=== PATIENT | female | born 1950 | race Caucasian/White ===

== ENCOUNTER → 2016-10-09 | Outpatient (CLI) | payer BC ==
[~2016-10-09] MED LIST: ALLERGY INJECTIONS SC; CALC500C70 PO; IRBE75TA2 PO; MISCCAP80 PO; MONT1TAB3 PO; MULT-506 PO; NAPR1TAB9 PO; OXGN; PANT20TA2 PO; PLMIN90 INH; PSYL55.43 PO; UMEC1AER INH; VNTHFA/IN INH
--- NOTE | 2016-10-09 16:19 | MAMMOGRAPHY REPORT ---
UNILATERAL RIGHT DIGITAL DIAGNOSTIC MAMMOGRAM TOMOSYNTHESIS WITH CAD AND TARGETED RIGHT ULTRASOUND: 10/09/2016 CLINICAL HISTORY: 66-year-old woman presents for follow-up of probably benign cyst clusters within t he right breast. She has a history of prior benign left breast surgery. TECHNIQUE: Right breast CC and MLO 2-D digital and tomosynthesis images, spot magnification right CC and ML views were obtained. Current study was also evaluated with a Computer Aided Detection (CAD) system. COMPARISON: Comparison is made to exams dated: 04/10/2016 mammogram, 04/10/2016 ultrasound, 016 mammogram - [facility], 11/19/2013 mammogram, 08/20/2012 mammogram, and 1 mammogram - [facility]. BREAST COMPOSITION: There are scattered areas of fibroglandular density in the right breast. FINDINGS: There is a new small cluster of amorphous microcalcifications in the 6:00 anterior right breast, for which additional spot magnification views were obtained. On the spot magnification view s, none of the calcifications demonstrate definitive layering on the spot magnification ML view to c onfirm benign milk of calcium. They measure 5 mm in diameter. On the corresponding tomosynthesis i mages from the full-field views, they appear to be associated with a lobulated, partially circumscri bed mass, suggesting they could represent calcium within a cyst. Further evaluation with ultrasound was performed. There is another partially circumscribed lobulated mass in the lateral anterior rig ht breast on the CC view. No focal area of architectural distortion or other microcalcifications ar e identified. Real-time high-resolution ultrasound was performed in the 6:00 right breast, and also in the 12:00 a nd 9:00 axes to reevaluate the probable cyst clusters identified on prior ultrasound. In the 6:00 r ight breast, 1 cm from the nipple, there is a small microcyst cluster measuring approximately 6.6 x 3.7 x 8.1 mm. This likely correlates with the small cluster of microcalcifications and associated l obulated mass seen mammographically. Definitive characterization with tissue sampling is recommende d. In the 11:00 retroareolar right breast, there is a 10.7 x 6.7 x 14.1 mm cyst cluster. This prev iously measured 8.4 x 4.4 x 10.1 mm, and given slight differences in measuring technique appears sim ilar. Another small cyst cluster is seen in the 12:00 right breast, 2 cm from the nipple, measuring 3.7 x 4.1 x 3.6 mm this previously measured 4.3 x 4.3 x 7.3 mm and has decreased in size. IMPRESSION: ACR BI-RADS CATEGORY 4: SUSPICIOUS, TARGETED ULTRASOUND ACR BI-RADS CATEGORY 4: SUSPICI OUS 1. Ultrasound guided core needle biopsy is recommended for a probable cyst cluster in the 6:00 righ t breast, 1 cm from the nipple, thought to correlate with a lobulated mass with associated clustered microcalcifications identified mammographically. 2. Generally stable size of a probable cyst cluster in the 11:00/retroareolar right breast, and dec reased size of a cyst cluster in the 12:00 right breast. These results and recommendations were discussed with the patient at the time of the exam. She tent atively scheduled the biopsy prior to leaving our department. Approximately 10% of breast cancers are not detected with mammography. A negative mammographic repor t should not delay biopsy if a clinically suggestive mass is present. Caitlyn Drew M.D. ay/:10/09/2016 15:34:50 [employer] Information Clerk: Rafaela GRIGGS)(M), [facility] letter sent: Abnormal 4/5 BI-RADS Code: ACR BI-RADS Category 4: Suspicious Ultrasound BI-RADS: ACR BI-RADS Category 4: Suspic ious
== END | disposition home or self-care (01) ==
LOC: C.MAMM 08:41
PROVIDERS: ATTEND Obstetrics & Gynecology
DX: R92.0 Mammographic microcalcification found on diagnostic imaging of breast (principal); N60.01 Solitary cyst of right breast

== ENCOUNTER → 2016-10-18 | Outpatient (CLI) | payer BC ==
--- NOTE | 2016-10-18 10:45 | Discharge Instructions ---
Discharge Instructions Procedure Procedure Date: October 18, 2016. Reason for visit: Right Cystic Mass. Discharge Discharge Date: October 18, 2016. Discharge Diagnosis: status post breast biopsy Instructions Activity Recommendations: Additional Limitations (see below) Return to School/Work: no limitations Recommended Home Diet: No Limitations Provider Instructions: ACTIVITY RECOMMENDATIONS: * No lifting, pushing, pulling or exercising the affected side for three days. RETURN TO SCHOOL/WORK: * You may return to work/school after the procedure, but do not perform any strenuous activities for 24 to 48 hours. MEDICATIONS: * Tylenol (two 325 mg) every four to six hours if needed for mild pain (if not allergic to Tylenol). DIET: * Resume previous diet. SPECIAL CARE INSTRUCTIONS: * Keep biopsy site dry for 24 hours. May shower after 24 hours, but do not soak (bathe) incision. * May remove Tegaderm (plastic patch) tomorrow AFTER showering. * Leave the steri-strips on for one week. Allow the steri-strips to fall off by themselves. If not off after one week, you may remove them. You may place a Bandaid crosswise over the strips, if desired. * Apply ice 10 minutes on and 10 minutes off as needed. * Wear a bra at bedtime to sleep more comfortably for 2-3 days. * Your referring physician should have the results after approximately 5 to 7 business days. * Call for unusual bleeding, fever, drainage, etc or if you have any questions call during normal business hours or after hours call Dr Mena, . FOLLOW UP VISIT: Follow-up with Referring Physician as scheduled. Allergies Coded Allergies: No Known Allergies (Unverified , 08/15/15) Pepito Dodson Recommendations: Call your doctor if: * Temperature above 101 degrees * Pain not relieved by pain medicine ordered * There is increased drainage or redness from any incision * You have any unanswered questions or concerns. Your Doctors Instructions noted above were prepared by provider Suzanne Mena. Patient Signature Section: Patient Instructions Signature Page Macey Hunter Patient (or Guardian) Signature/Date: I have read and understand the instructions given to me by my caregivers. Caregiver/RN/Doctor Signature/Date: The above-named patient and/or guardian has received patient instructions on this date. + Original Patient Signature Page (only) stays with chart. Please make copy for patient.
--- NOTE | 2016-10-18 14:04 | MAMMOGRAPHY REPORT ---
THIS REPORT HAS BEEN AMENDED. AMENDMENT: 10/24/2016 Suzanne Mena M.D. The pathology from ultrasound-guided biopsy of the right 6:00 breast mass was reviewed on 10/24/2016. The pathology shows fibrocystic changes, which is concordant with the imaging findings. Recommend follow-up diagnostic tomosynthesis mammograms and possible ultrasound of the right breast in 6 pipo hs. ULTRASOUND GUIDED BIOPSY RIGHT BREAST: 10/18/2016 CLINICAL HISTORY: Right 6:00 breast mass. PATIENT CONSENT: The procedure, risks and benefits were discussed with the patient and informed writ ten consent was obtained. A timeout was performed immediately prior to the procedure. PROCEDURE DESCRIPTION: With ultrasound guidance, aseptic technique, and lidocaine as the local anest hetic (1% lidocaine to anesthetize the skin and 1% lidocaine with epinephrine to anesthetize the jossie per tissues), the mass of concern in the right 6:00 breast was sampled 4 times with a 14-gauge achie ve biopsy needle. The mass was no longer visualized after the last biopsy pass. Immediately therea fter, with ultrasound guidance, aseptic technique, and lidocaine as the local anesthetic, a metallic localizer clip was placed in the general region of the biopsied mass. Direct pressure was applied to the site immediately post procedure and hemostasis was achieved. Postprocedure unilateral mammog wai were performed to confirm placement of the clip in the expected location of the breast mass. Th e patient tolerated the procedure without complication. She was given wound care instructions. The specimens were sent to pathology for analysis. COMPARISON: Comparison is made to exams dated: 10/09/2016 ultrasound, 10/09/2016 mammogram, 6 mammogram, 04/10/2016 ultrasound, 03/23/2016 mammogram - [facility], and 11/20/19 mammogram - [facility]. IMPRESSION: ULTRASOUND GUIDED BIOPSY Ultrasound guided core needle biopsy of the right 6:00 breast mass, with clip placement. The patient will receive pathology results from her referring provider. If pathology results are benign, recom mend follow-up diagnostic mammograms and possible ultrasound of the right breast in 6 months; routin e mammography of the left breast will be due at that time. Suzanne Mena M.D. ah/:10/18/2016 10:56:57 Cake Puller: Coco Patel, [facility]
--- NOTE | 2016-10-18 14:08 | MAMMOGRAPHY REPORT ---
UNILATERAL RIGHT DIGITAL DIAGNOSTIC MAMMOGRAM TOMOSYNTHESIS: 10/18/2016 CLINICAL HISTORY: Status post right breast ultrasound guided biopsy. TECHNIQUE: Breast tomosynthesis in addition to standard 2D mammography was performed. Postprocedur al right CC and ML tomosynthesis images including C views were obtained. COMPARISON: Comparison is made to exams dated: 10/09/2016 mammogram, 04/10/2016 mammogram, 6 ultrasound, and 03/23/2016 mammogram - [facility]. BREAST COMPOSITION: There are scattered areas of fibroglandular density in the right breast. FINDINGS: A new biopsy marker clip is seen in the right breast status post ultrasound guided biopsy of the right 6:00 breast mass. The clip is located more medial and inferior to the lobulated mass with internal calcifications seen on the recent diagnostic workup, indicating that the biopsied mass does not correspond with the mammographic mass. However, the mammographic mass and calcifications is stable dating back to the February 2016 exam, and likely represents a cyst with internal milk of c alcium. No significant postbiopsy hematoma is seen. IMPRESSION: POST PROCEDURE IMAGING FOR MARKER PLACEMENT New biopsy marker clip status post ultrasound guided biopsy of the right 6:00 breast mass. The biop sied mass does not correspond with the mammographic mass and associated calcifications, however, the mass and calcifications are stable dating back to the February 2016 exam and are probably benign and likely represent a cyst with internal milk of calcium. Pending benign pathology results of the rig ht breast mass, recommend follow-up diagnostic mammograms and possible ultrasound of the right breas t in 6 months to confirm stability. Approximately 10% of breast cancers are not detected with mammography. A negative mammographic repor t should not delay biopsy if a clinically suggestive mass is present. Suzanne Mena M.D. /:10/18/2016 11:34:52 [employer] Developer: Coco Patel, [facility] BI-RADS Code: Post Procedure Imaging For Marker Placement
== END | disposition home or self-care (01) ==
LOC: C.MAMM 10:08
PROVIDERS: ATTEND Obstetrics & Gynecology
DX: N60.11 Diffuse cystic mastopathy of right breast (principal)

== ENCOUNTER → 2017-04-24 | Outpatient (CLI) | payer BC ==
--- NOTE | 2017-04-25 07:55 | MAMMOGRAPHY REPORT ---
BILATERAL DIGITAL DIAGNOSTIC MAMMOGRAM TOMOSYNTHESIS WITH CAD AND TARGETED RIGHT ULTRASOUND: 04/24/20 CLINICAL HISTORY: 67-year-old woman presents for follow-up in the right breast status post benign ult rasound-guided core biopsy. She presents to reassess a grouping of microcalcifications located anter ior to the biopsy marker clip and also due for annual bilateral screening mammograms. TECHNIQUE: Bilateral CC and MLO 2-D and tomosynthesis images, spot magnification right CC and ML view s were obtained. Current study was also evaluated with a Computer Aided Detection (CAD) system. COMPARISON: Comparison is made to exams dated: 10/09/2016 ultrasound, 10/09/2016 mammogram, 04/10/2016 mammogram, 03/23/2016 mammogram - [facility], 11/19/2013 mammogram, and 08/20/2012 [facility]. BREAST COMPOSITION: The tissue of both breasts is heterogeneously dense, which may obscure small mas ses. FINDINGS: The left breast parenchymal pattern is similar to prior mammograms. There is expected arch itectural distortion in the lower inner quadrant, an area of prior surgery. No suspicious mass, arch itectural distortion or cluster of microcalcifications is seen in the left breast. There is a stable ribbon-shaped biopsy marker clip in the 6:00 middle one third of the right breast, denoting an area of prior benign ultrasound-guided core biopsy. Anterior superior and slightly media l to the biopsy marker clip is a small grouping of faint amorphous microcalcifications which was asse ssed with spot magnification views. This grouping measures 4 mm in maximum dimension. On the spot i ndication CC view the microcalcifications are smudgy but none demonstrate definite layering on the sp ot magnification ML view to confirm benignity. Further evaluation with ultrasound was performed. Ad ditionally, the spot magnification views appears similar to those obtained on 10/09/2016, suggesting benignity. Targeted ultrasound was performed in the right breast with particular attention to the retroareolar a nd 6:00 axes. A small lobulated cyst is identified in the 9:00 periareolar right breast measuring 7. 0 x 2.3 x 7.5 mm. No internal punctate reflectors are definitely identified. No other discrete annie d or cystic mass is seen. There is minimal benign duct ectasia in the retroareolar right breast on u ltrasound. IMPRESSION: ACR-BI-RADS CATEGORY 3: PROBABLY BENIGN, TARGETED ULTRASOUND ACR-BI-RADS CATEGORY 3: PRO BABLY BENIGN 1. There is a small stable grouping of punctate and amorphous microcalcifications measuring 4 mm in the 6:00 anterior subareolar right breast, that appears stable dating back to 10/09/2016. Another sh ort interval follow-up right diagnostic mammogram including spot magnification views is recommended t o ensure longer stability. 2. Stable postbiopsy changes in the 6:00 right breast, without evidence of other new suspicious abno rmalities seen in the right breast on mammogram or targeted ultrasound. 3. Stable mammographic appearance of the left breast, without mammographic evidence of malignancy. Advise follow-up in one year. These results and recommendations were discussed with the patient at the time of the exam. She tenta tively scheduled the follow-up diagnostic appointment prior to leaving our department. Approximately 10% of breast cancers are not detected with mammography. A negative mammographic report should not delay biopsy if a clinically suggestive mass is present. Caitlyn Drew M.D. ay/:04/24/2017 17:03:04 Health [employer] Safety Advisor: Rafaela SHAH(Guero)(M), [facility] letter sent: Follow Up Recommended 3 BI-RADS Code: ACR-BI-RADS Category 3: Probably Benign Ultrasound BI-RADS: ACR-BI-RADS Category 3: Pr obably Benign
== END | disposition home or self-care (01) ==
LOC: C.MAMM 12:29
PROVIDERS: ATTEND Obstetrics & Gynecology
DX: R92.0 Mammographic microcalcification found on diagnostic imaging of breast (principal)

== ENCOUNTER → 2017-12-18 | Outpatient (CLI) | payer BC | END | disposition home or self-care (01) | LOC: C.LAB1850 09:19 | PROVIDERS: ATTEND Internal Medicine Pulmonary Disease | DX: J47.9 Bronchiectasis, uncomplicated (principal); J30.1 Allergic rhinitis due to pollen; J45.909 Unspecified asthma, uncomplicated; J30.89 Other allergic rhinitis ==